=== PATIENT | female | born 1980 | race Caucasian/White ===

== ENCOUNTER → 2018-10-12 | Outpatient (REF) ==
[2018-10-12 11:08] LABS: RUBELLA IgG QUALITATIVE IMMUNE (IMMUNE)
[2018-10-13 08:06] LABS: RUBEOLA IgG ANTIBODY >300.0 AU/mL (Immune >29.9)
== END ==
LOC: M LAB 09:46
DX: Z00.00 Encounter for general adult medical examination without abnormal findings (principal)